=== PATIENT | female | born 1985 | race Two or more races ===

== ENCOUNTER → 2023-10-07 15:13 | Outpatient (REF) | payer OTHER, SELFPAY | LOC: REG 15:13 | PROVIDERS: ATTENDING PHYSICIAN Obstetrics & Gynecology | DX: Z34.90 Encounter for supervision of normal pregnancy, unspecified, unspecified trimester (principal) | CPT/HCPCS: 36415; 84144; 84702 ==

== ENCOUNTER → 2023-10-09 15:37 | Outpatient (REF) | payer OTHER, SELFPAY | LOC: REG 15:37 | PROVIDERS: ATTENDING PHYSICIAN Obstetrics & Gynecology | DX: Z34.90 Encounter for supervision of normal pregnancy, unspecified, unspecified trimester (principal) | CPT/HCPCS: 36415; 84702 ==

== ENCOUNTER → 2023-10-14 10:55 | Outpatient (REF) | payer OTHER, SELFPAY | LOC: RAD 10:55 | PROVIDERS: ATTENDING PHYSICIAN Obstetrics & Gynecology | DX: O36.80X0 Pregnancy with inconclusive fetal viability, not applicable or unspecified (principal); Z34.90 Encounter for supervision of normal pregnancy, unspecified, unspecified trimester | CPT/HCPCS: 76801; 76817 ==

== ENCOUNTER → 2023-10-15 17:03 | Outpatient (REF) | payer OTHER, SELFPAY | LOC: REG 17:03 | PROVIDERS: ATTENDING PHYSICIAN Obstetrics & Gynecology | DX: Z34.90 Encounter for supervision of normal pregnancy, unspecified, unspecified trimester (principal) | CPT/HCPCS: 36415; 84144; 84702 ==

== ENCOUNTER → 2023-10-23 13:11 | Outpatient (REF) | payer OTHER, SELFPAY ==
[2023-10-23 14:08] LABS: % Basophils 0.6 % (0-2); % Eosinophils 2.2 % (0-6); % Immature Granulocytes 0.2 % (0-0.5); % Lymphocytes 37.5 % (20.5-51.1); % Monocytes 6.7 % (1.7-9.3); % Neutrophils 52.8 % (42.2-75.2); Absolute Basophils 0.1 10^3/uL (0-0.2); Absolute Eosinophils 0.2 10^3/uL (0-0.7); Absolute Monocytes 0.5 10^3/uL (0.1-0.6); Absolute Neutrophils 4.3 10^3/uL (1.4-6.5); Hemoglobin 11.9 g/dL (12.0-16.0); Mean Corpuscular Hgb 30.7 pg (27.0-31.0); Mean Corpuscular Volume 90.2 fL (81.0-99.0); Mean Platelet Volume 9.7 fL (7.4-10.4); Nucleated Red Blood Cells % 0 %; Platelet Count 285 10^3/uL (130-400); Red Blood Cell Count 3.88 10^6/uL (4.20-5.40); Red Cell Dist. Width 13.2 % (11.5-14.5); White Blood Cell Count 8.1 10^3/uL (4.8-10.8)
[2023-10-23 20:25] LABS: Rubella Positive
[2023-10-23 21:55] LABS: Hepatitis C Antibody Negative (Negative)
[2023-10-23 22:02] LABS: Hepatitis B Surface Antigen Negative (Negative)
[2023-10-24 13:27] LABS: HIV Combo Negative (Negative)
[2023-10-26 10:39] LABS: HCV Quant by NAAT IU/mL Not Detected; HCV Quant by NAAT Interp Not Detected (Not Detected); HCV Quant by NAAT Log IU/mL Not Detected log IU/mL
[2023-10-28 16:20] LABS: Syphilis/T. pallidum Ab Reflex Negative (Negative)
== END ==
LOC: REG 13:11
PROVIDERS: ATTENDING PHYSICIAN Obstetrics & Gynecology
DX: Z34.90 Encounter for supervision of normal pregnancy, unspecified, unspecified trimester (principal)
CPT/HCPCS: 36415; 80055; 83036; 84702; 86803; 87389; 87522

== ENCOUNTER → 2023-10-24 12:19 | Outpatient (REF) | payer OTHER, SELFPAY | LOC: HWRAD 12:19 | PROVIDERS: ATTENDING PHYSICIAN Obstetrics & Gynecology | DX: O26.91 Pregnancy related conditions, unspecified, first trimester (principal) | CPT/HCPCS: 76817 ==

== ENCOUNTER → 2024-05-14 10:23 | Outpatient (REF) | payer OTHER, SELFPAY | LOC: WDC 10:23 | PROVIDERS: ATTENDING PHYSICIAN Obstetrics & Gynecology | DX: N63.20 Unspecified lump in the left breast, unspecified quadrant (principal) | CPT/HCPCS: 76642; 77062; 77066 ==

== ENCOUNTER → 2024-05-20 16:00 | Outpatient (REF) | payer OTHER, SELFPAY | LOC: RAD 16:00 | PROVIDERS: ATTENDING PHYSICIAN Nurse Practitioner Family | DX: Z13.9 Encounter for screening, unspecified (principal) | CPT/HCPCS: 71046 ==

== ENCOUNTER → 2024-08-03 20:40 | Outpatient (REF) | payer OTHER, SELFPAY | LOC: MRI 3T 20:40 | PROVIDERS: ATTENDING PHYSICIAN Nurse Practitioner Adult Health | DX: M25.571 Pain in right ankle and joints of right foot (principal) | CPT/HCPCS: 73721 ==

== ENCOUNTER 2024-09-27 10:35 | Emergency (ER) | payer OTHER, SELFPAY ==
[2024-09-27 10:51] VITALS: BP 134/84
[2024-09-27 11:19] LABS: % Basophils 0.6 % (0-2); % Eosinophils 0.7 % (0-6); % Immature Granulocytes 0.3 % (0-0.5); % Lymphocytes 29.6 % (20.5-51.1); % Neutrophils 62.8 % (42.2-75.2); Absolute Eosinophils 0.1 10^3/uL (0-0.7); Absolute Lymphocytes 2.1 10^3/uL (1.2-3.4); Absolute Monocytes 0.4 10^3/uL (0.1-0.6); Absolute Neutrophils 4.4 10^3/uL (1.4-6.5); Hematocrit 37.8 % (37.0-47.0); Hemoglobin 12.7 g/dL (12.0-16.0); Mean Corp Hgb Conc. 33.6 g/dL (33.0-37.0); Mean Corpuscular Hgb 29.7 pg (27.0-31.0); Mean Corpuscular Volume 88.3 fL (81.0-99.0); Mean Platelet Volume 8.7 fL (7.4-10.4); Nucleated Red Blood Cells % 0 %; Platelet Count 275 10^3/uL (130-400); Red Blood Cell Count 4.28 10^6/uL (4.20-5.40); Red Cell Dist. Width 12.1 % (11.5-14.5)
[2024-09-27 11:37] LABS: ALT (SGPT) 13 U/L (0-35); AST (SGOT) 20 U/L (14-36); Albumin 4.5 g/dl (3.5-5.0); Alkaline Phosphatase 57 U/L (38-126); Blood Urea Nitrogen 12 mg/dl (7-17); Calcium 9.4 mg/dl (8.4-10.2); Carbon Dioxide 24 mmol/L (22-30); Chloride 104 mmol/L (98-107); Glucose 89 mg/dl (70-99); Sodium 137 mmol/L (135-145); Total Bilirubin 0.3 mg/dl (0.2-1.3); Total Protein 7.3 g/dl (6.3-8.2); eGFR > 60.00
--- NOTE | 2024-09-27 12:16 | ED.GENMED ---
Addendum entered and electronically signed by Michele Almeida MD 09/27/24 18:28:
UPDATE (Michele Almeida MD)
I have seen and evaluated the patient after signout and reviewed all labs and imaging.
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 She is also having cramping abdominal pain. For the past few hours
bleeding has been more heavy which prompted ER visit. She had labs sent off which were unremarkable including negative hCG. She is currently pending pelvic ultrasound. [facility] involved with case, will discuss with them pending imaging.
Physical exam: Awake alert not in distress. Vital signs normal. Per initial physician exam very slight oozing from the cervix but no heavy bleeding.
Medical Decision Makin-year-old female presents with dysfunctional uterine bleeding. She is hemodynamically stable with a normal hemoglobin. hCG negative. She is pending pelvic ultrasound and [facility] recommendation.
Pelvic ultrasound negative for any acute pathology. Case discussed with [facility] they sent in prescription for Provera, will also start patient on some TXA. Patient comfortable with this plan. All questions answered
Original Note:
History of Present Illness
General
Chief Complaint: Vaginal Bleeding
Time Seen by Provider: 09/27/24 12:09
History of Present Illness
History of Present Illness:
Patient is a 38-year-old woman who is a G3, P0 presenting to the emergency department with vaginal bleeding. Patient states that her last menstrual period was on September 01. Usually her period is regular last 3 to 4 days and is light. However
her last period lasted only a day. For the past 10 days she has had bleeding. 5 days ago the bleeding worsen. She states that she changes a pad or tampon every 2-3 hours. She is passing clots. She is slightly lightheaded and dizzy. She does
have diffuse cramping. She did not pass out. She did take ibuprofen earlier this morning. She also tried intravaginal progesterone a few days ago which did not help. She took a home test that was negative. Her last miscarriage was
about a year ago. She denies any chest pain or difficulty breathing. She is not on a blood thinner. No history of easy bleeding or bruising
Phy Exam
Physical Exam
Physical Exam:
GENERAL: in no acute distress
HEENT: normocephalic, extraocular movements intact, moist oral mucosa
NECK: normal inspection
RESPIRATORY: no respiratory distress, clear to auscultation bilaterally
CARDIOVASCULAR: regular rate and rhythm
ABDOMEN/: soft, non-distended, non-tender to palpation, no rebound or guarding
Pelvic: External genitalia without erythema, exudate or discharge. Vaginal vault is without discharge. Cervix is of normal color without lesion. The os is closed. There is bleeding noted from the cervix.
EXTREMITIES: non-tender, no edema/swelling
NEUROLOGIC: awake and alert, moves all extremities
SKIN: warm
Course
Orders/Labs/Results
Orders:
Orders
09/27/24 11:08
CBC/With Diff [Complete Blood Count/With Diff] Urgent
Comprehensive Metabolic Panel Urgent
HCG, Serum Qualitative Screen Urgent
Comment: ADD ON
09/27/24 12:09
Pelvis & Transvaginal US [US Pelvis W Transvag Combined] Urgent
Comment:
Reason For Exam: vaginal bleeding
09/27/24 12:10
Add On- LAB Urgent
Tests Added?: hcg qual
09/27/24 12:16
Ibuprofen [Motrin] 800 mg PO NOW STA
09/27/24 11:08
09/27/24 11:08
Vital Signs
Initial and Last Documented VS:
Initial Vital Signs
Temp Resp
97.9 F 16
09/27/24 10:48 09/27/24 10:48
Last Documented Vital Signs
Temp Pulse Resp BP Pulse Ox
97.9 F 70 16 134/84 100
09/27/24 10:48 09/27/24 10:51 09/27/24 10:51 09/27/24 10:51 09/27/24 10:51
MDM/Problems Addressed
Differential Diagnosis Includes:
Patient is a 38-year-old woman G3, P0 presenting to the emergency department vaginal bleeding for the past 10 days. Vitals are unremarkable and exam is reassuring. Differential consists of versus versus fibroid versus irregular
menses. Blood work obtained prior to my evaluation does show a stable hemoglobin. Will add on hCG and obtain pelvic ultrasound. Will give ibuprofen. Patient is tolerating fluids.
*Critical Care Note
Total Time (30-74mins, 75-104mins- exclusive of procedures): Not Applicable
Update Note
Update Note:
On reevaluation patient is resting comfortably. The cramps have subsided slightly. We are pending ultrasound at this time. She is not . I did attempt to reach out to [facility] however they are not an emergency surgery. Patient signed out to
oncoming attending pending ultrasound and [facility] recommendations.
ED Attending Note
-
Portions of this chart may have been created with voice recognition software.� Occasional wrong word or��sound alike� substitutions may have occurred due to the inherent limitations of voice recognition software.
Discharge Plan
Departure
Referrals:
NONE,* [Family Provider] -
Discharge Date and Time
Print Language: Grady
[2024-09-27] MEDS: MOTRIN 800 MG PO (12:27)
[2024-09-27 12:46] LABS: HCG, Serum Qualitative Screen Negative
[2024-09-27] MEDS: TYLENOL 1000 MG PO (15:54)
[2024-09-27 18:59] LABS: Prolactin 14.6 ng/ml (3.0-18.6)
[2024-09-27 19:33] LABS: FSH 5.1 mIU/ml
== END 2024-09-27 17:05 | disposition home or self-care (01) ==
LOC: EMR 10:35
PROVIDERS: EMERGENCY PHYSICIAN Student in an Organized Health Care Education/Training Program
DX: N93.9 Abnormal uterine and vaginal bleeding, unspecified (principal)
CPT/HCPCS: 99284; 76830; 76856; 80053; 83001; 83002; 84146; 84443; 84703; 85025